=== PATIENT | male | born 1970 | race American Indian/Alaskan Native ===

== ENCOUNTER 2017-03-10 11:06 | Outpatient (CLI) | payer MEDICARE ==
--- NOTE | 2017-03-11 14:28 | Vascular Lab Report ---
LOWER EXTREMITY VENOUS DUPLEX: REASON FOR EXAM: Pain and swelling of the lower extremities. COMMENTS ON THE RIGHT: All veins visualized are freely compressible without evidence of internal echogenicity. Flow is spontaneous and phasic throughout. COMMENTS ON THE LEFT: Chronic nonocclusive thrombus is noted in the femoral vein. The remaining veins visualized are freely compressible without evidence of internal echogenicity. Spontaneous and phasic flow is present proximally. IMPRESSION: Chronic deep venous thrombosis in the left lower extremity
== END 2017-03-10 11:07 | disposition home or self-care (01) ==
LOC: VAS 11:06
PROVIDERS: ATTEND Internal Medicine
DX: I82.512 Chronic embolism and thrombosis of left femoral vein (principal); M79.661 Pain in right lower leg
CPT/HCPCS: 93970